=== PATIENT | female | born 2000 | race Caucasian/White ===

== ENCOUNTER 2024-08-20 16:29 | Emergency (ER) | payer MEDICAID ==
[~2024-08-20] VITALS: Ht 167.6 cm; Wt 63.6 kg
[2024-08-20 16:38] VITALS: BP 131/99; PULSE 72; RESP 18; TEMP 98.8; O2SAT 100
[2024-08-20 17:45] LABS: BASOPHILS % (AUTO) 0.8 % (0-1); EOSINOPHILS % (AUTO) 0.5 % (0-6); HEMATOCRIT 36.2 % (35.0-45.0); HEMOGLOBIN 11.9 g/dl (12.0-16.0); LYMPHOCYTES # (AUTO) 1.6 X10'3 (1.1-4.8); LYMPHOCYTES % (AUTO) 26.5 % (21-51); MEAN CORPUSCULAR HEMOGLOBIN 25.8 PG (27.0-31.0); MEAN CORPUSCULAR HGB CONC 32.8 g/dL (33.0-36.5); MEAN CORPUSCULAR VOLUME 78.5 FL (78-98); MEAN PLATELET VOLUME 8.4 FL (7.4-10.4); MONOCYTES # (AUTO) 0.7 X10'3 (0-0.9); NEUTROPHILS # (AUTO) 3.6 X10'3 (1.8-7.7); NEUTROPHILS % (AUTO) 61.2 % (42-75); PLATELET COUNT 382 X10'3 (140-440); RED BLOOD COUNT 4.61 X10'6 (4.20-5.60); RED CELL DISTRIBUTION WIDTH 14.3 % (11.5-14.5)
[2024-08-20 17:49] LABS: ALBUMIN 4.5 G/DL (3.4-5.0); ANION GAP 9 (8-16); BLOOD UREA NITROGEN 18 MG/DL (7-18); BUN/CREATININE RATIO 25.4 (10.0-20.0); CHLORIDE 102 MMOL/L (99-107); CREATININE 0.71 MG/DL (0.40-0.90); GLUCOSE 79 MG/DL (70-104); LIPASE 24 U/L (16-77); POTASSIUM 3.4 MMOL/L (3.5-5.1); SODIUM 138 MMOL/L (135-145); TOTAL CARBON DIOXIDE 26.6 MMOL/L (24-32); eCRCL 115 ML/MIN; eGFR > 90 ML/MIN
== END 2024-08-20 20:24 | disposition left against medical advice (07) ==
LOC: ER 16:29
DX: R11.2 Nausea with vomiting, unspecified (principal); R51.9 Headache, unspecified; Z53.21 Procedure and treatment not carried out due to patient leaving prior to being seen by health care provider
CPT/HCPCS: 36415; 80048; 83690; 84484; 85025

== ENCOUNTER 2025-01-30 14:48 | Outpatient (CLI) | payer MEDICAID ==
--- NOTE | 2025-01-30 15:26 | RADIOLOGY REPORT ---
EXAM: CT CT HEAD HISTORY: HYDROCEPHALUS COMPARISON: None TECHNIQUE: Axial images of the head were obtained and reformatted in coronal and sagittal planes. All CT scans at this medical facility are performed using dose modulation techniques as appropriate t o a performed exam including the following: Automated exposure control was utilized; adjustment of th e MA and/or KV according to patient size; and use of iterative reconstruction technique. CT Dose: CTDI volume is 62 mGy. Dose-length product is 990 mGy*cm FINDINGS: The lateral ventricles are prominent in size, right greater than left. There is no extra-axial fluid collection. There is no evidence of acute intracranial hemorrhage, mass, mass effect midline shift. Chow-white ma tter differentiation is maintained. The visualized paranasal sinuses and mastoid air cells are clear. The calvarium is intact. IMPRESSION: 1. The lateral ventricles are prominent in size, [id number]. Clinical correlation and co mparison with any available prior CT studies is recommended. HS:Y
== END 2025-01-30 23:59 | disposition home or self-care (01) ==
LOC: RAD 14:48
PROVIDERS: ATTEND Nurse Practitioner Family
DX: G91.9 Hydrocephalus, unspecified (principal)
CPT/HCPCS: 70450